=== PATIENT | female | born 1970 | race African-American/Black ===

== ENCOUNTER 2020-05-31 10:59 | Outpatient (CLI) | payer BC, SELFPAY ==
--- NOTE | ~2020-05-31 | XR_ITS ---
EXAMINATION: XR foot RT standing 2V DATE: 05/31/2020 12:06 INDICATION: Rheumatoid arthritis. TECHNIQUE: 2 views of right foot standing were obtained. COMPARISON: None. FINDINGS: There is a bunionette deformity of the fifth digit. Pes planus is noted. No fracture. There is mild osteoarthritis of first metatarsophalangeal joint and some of the interphalangeal joints and midfoot joints. No evidence of inflammatory arthropathy. IMPRESSION: 1. Mild polyarticular osteoarthritis. 2. Pes planus. 3. Bunionette. Reviewed, dictated and finalized at location A. TY RESEARCH ASSOCIATE
--- NOTE | ~2020-05-31 | XR_ITS ---
EXAMINATION: XR foot LT standing 2V DATE: 05/31/2020 12:08 INDICATION: Rheumatoid arthritis. TECHNIQUE: 2 views of left foot standing were obtained. COMPARISON: None. FINDINGS: Pes planus is noted. There is a bunionette deformity of fifth digit. No fracture. There is mild osteoarthritis of first metatarsophalangeal joint. No evidence of inflammatory arthropathy. IMPRESSION: 1. Mild osteoarthritis of first metatarsophalangeal joint. 2. Pes planus. 3. Bunionette. Reviewed, dictated and finalized at location A. NCIAL SYSTEMS ANALYST
--- NOTE | ~2020-05-31 | XR_ITS ---
EXAMINATION: HAND-CHELLE ARTHRITIS 3+VIEWS DATE: 05/31/2020 12:08 INDICATION: Rheumatoid arthritis TECHNIQUE: Posteroanterior, lateral, and oblique views of the left and of the right hands as well as a ballcatchers view of both hands were obtained. COMPARISON: None. FINDINGS: Right first metacarpophalangeal arthrodesis with internal fixation with a pair of pins and dorsal emerita ed figure 8 cerclage wire. No acute fractures. Severe joint space narrowing at the bilateral first me tacarpophalangeal joints. The joint space narrowing appears relatively uniform with associated erosio ns at the base of the left second proximal phalanx and at both metacarpal heads as well as tiny sinai nal osteophytes which would be consistent with given history of rheumatoid arthritis with likely seco ndary mild osteoarthritis. Additional mild relatively uniform joint space narrowing at the remaining metacarpophalangeal joints but without erosions consistent with mild rheumatoid arthritis. Lucency at the distal head of the right ulna most likely an additional erosion related to rheumatoid arthritis although differential includes less likely osteoarthritis related subchondral cyst. Additional polyar ticular osteoarthritis. Paraspinal nonuniform joint space narrowing is of moderate severity at the ri ght radiocarpal, wrist and triscaphe joints and mild at the left radiocarpal, wrist, triscaphe joints and mild at the right first carpometacarpal and several predominantly distal interphalangeal joints. IMPRESSION: 1. Polyarticular osteoarthritis throughout both hands likely representing a combination of rheumatoid arthritis, severe at the bilateral second metacarpophalangeal joints, and mild to moderate osteoarth ritis at multiple joints in both hands and wrists as detailed above. 2. Internally fixed right first metacarpophalangeal arthrodesis. Reviewed, dictated and finalized at location H. NG MACHINE ASSEMBLER IMPRESSION: 1. Polyarticular osteoarthritis throughout both hands likely representing a com bination of rheumatoid arthritis, severe at the bilateral second metacarpophala ngeal joints, and mild to moderate osteoarthritis at multiple joints in both blackman nds and wrists as detailed above. 2. Internally fixed right first metacarpophalangeal arthrodesis.
[2020-05-31 11:53] LABS: Hematocrit 35.2 % (37.0-47.0); Hemoglobin 10.9 g/dL (12.0-15.0); Mean Corpuscular Hemoglobin 23.8 pg (26-34); Mean Corpuscular Volume 76.9 fl (80-100); Mean Platelet Volume 10.2 fl (7.4-10.4); Platelet Count Result 233 k/mm3 (150-375); Red Blood Count 4.58 M/mm3 (4.2-5.4); Red Cell Distribution Width 14.5 % (11.5-14.5); White Blood Count 4.4 K/mm3 (4.5-10.0)
[2020-05-31 12:06] LABS: Add Urine Microscopic? YES; Appearance Urine Clear (Clear); Bacteria Urine Trace /hpf; Bilirubin Urine Negative (Negative); Blood Urine Negative (Negative); Color Urine Yellow (Yellow); Glucose Urine UA Negative (Negative); Ketones Urine Negative (Negative); Leukocyte Esterase Ur Trace LEU/UL (Negative); Mucus Urine Rare /lpf; Nitrate Urine Negative (Negative); Protein Urine 1+ mg/dL (Negative); RBC Urine 0-2 /hpf (0-2); Specific Grav Ur 1.018 (1.001-1.035); Squamous Epithelial Cell Urine Many /hpf (Few); Transitional Epi Cells Urine Rare /hpf (None Seen); Urobilinogen Urine Negative mg/dL (<2.0); WBC Urine 0-3 /hpf
[2020-05-31 12:13] LABS: Alanine Aminotransferase 35 U/L (4-35); Albumin Level 4.3 g/dL (3.5-5.1); Alkaline Phosphatase 67 U/L (38-126); Anion Gap 9 mmol/L (8-16); Aspartate Amino Transferase 37 U/L (14-36); Bilirubin,Total 0.5 mg/dL (0.2-1.3); Blood Urea Nitrogen 16 mg/dL (7-17); CRP < 0.5 mg/dL (<1.0); Calcium 9.6 mg/dL (8.4-10.2); Carbon Dioxide 27 mmol/L (22-30); Chloride 102 mmol/L (98-107); Estimated Glomerular Filt Rate > 60; Glucose 86 mg/dL (65-105); Potassium 3.6 mmol/L (3.4-5.0); Sodium 138 mmol/L (137-145)
[2020-05-31 12:48] LABS: Hepatitis B Surface Antigen Negative (Negative)
[2020-05-31 12:58] LABS: Erythrocyte Sedimentation Rate 22 mm/hr (0-20)
[2020-05-31 13:08] LABS: Hepatitis B Surface Anti Res Positive; Hepatitis C Virus Antibody Negative (Negative)
[2020-06-03 04:52] LABS: Hepatitis B Core Ab Total Nonreactive (Nonreactive)
[2020-06-03 10:54] LABS: Anti Cyclic Citrullinated Pept >250 Units (<20)
[2020-06-03 21:28] LABS: NIL 0.01 IU/mL; Quantiferon TB Plus, 1T NEGATIVE (NEGATIVE); TB2-NIL 0.01 IU/mL
== END 2020-05-31 11:00 | disposition home or self-care (01) ==
PROVIDERS: PCP Family Medicine; Visit Provider Internal Medicine
DX: M05.79 Rheumatoid arthritis with rheumatoid factor of multiple sites without organ or systems involvement (principal); M21.42 Flat foot [pes planus] (acquired), left foot; M21.622 Bunionette of left foot; M19.072 Primary osteoarthritis, left ankle and foot; M19.071 Primary osteoarthritis, right ankle and foot; M21.41 Flat foot [pes planus] (acquired), right foot; M21.621 Bunionette of right foot
CPT/HCPCS: 36415; 73130; 73620; 80053; 81001; 82306; 85027; 85652; 86038; 86039; 86140; 86200; 86480; 86704; 86706; 86803; 87340

== ENCOUNTER 2020-10-15 15:37 | Outpatient (CLI) | payer BC, SELFPAY ==
[2020-10-15 16:16] LABS: Basophils Percent Auto 0.3 % (0.2-1.2); Eosinophils Absolute Auto 0.1 K/mm3 (0-0.3); Eosinophils Percent Auto 1.3 % (0-4.4); Hemoglobin 11.3 g/dL (12.0-15.0); Immature Granulocyte Absolute 0.01 K/mm3 (0.00-0.031); Immature Granulocyte Percent A 0.3 % (0-0.5); Lymphocytes Absolute Auto 1.35 K/mm3 (0.9-3.2); Lymphocytes Percent Auto 34.4 % (18.3-44.2); Mean Corpuscular HGB Conc 30.5 g/dl (32-36); Mean Corpuscular Hemoglobin 23.3 pg (26-34); Mean Corpuscular Volume 76.3 fl (80-100); Mean Platelet Volume 10.1 fl (7.4-10.4); Monocytes Absolute Auto 0.4 K/mm3 (0.1-0.6); Monocytes Percent Auto 11.2 % (2.6-8.5); Neutrophils Absolute Auto 2.1 K/mm3 (1.3-6.7); Neutrophils Percent Auto 52.5 % (45.5-73.1); Platelet Count Result 290 k/mm3 (150-375); Red Blood Count 4.85 M/mm3 (4.2-5.4); Red Cell Distribution Width 14.1 % (11.5-14.5); White Blood Count 3.9 K/mm3 (4.5-10.0)
[2020-10-15 16:19] LABS: Add Urine Microscopic? YES; Appearance Urine Cloudy (Clear); Bilirubin Urine Negative (Negative); Blood Urine Negative (Negative); Color Urine Yellow (Yellow); Glucose Urine UA Negative (Negative); Ketones Urine Negative (Negative); Leukocyte Esterase Ur Negative LEU/UL (Negative); Nitrate Urine Negative (Negative); Protein Urine Negative (Negative); RBC Urine 0-2 /hpf (0-2); Squamous Epithelial Cell Urine Moderate /hpf (Few); Urobilinogen Urine Negative mg/dL (<2.0); WBC Urine 0-3 /hpf
[2020-10-15 16:36] LABS: Potassium 3.8 mmol/L (3.4-5.0)
[2020-10-15 16:44] LABS: Alanine Aminotransferase 42 U/L (4-35); Albumin Level 4.5 g/dL (3.5-5.1); Alkaline Phosphatase 76 U/L (38-126); Anion Gap 6 mmol/L (8-16); Aspartate Amino Transferase 36 U/L (14-36); Bilirubin,Total 0.2 mg/dL (0.2-1.3); Blood Urea Nitrogen 13 mg/dL (7-17); CRP 1.3 mg/dL (<1.0); Calcium 9.6 mg/dL (8.4-10.2); Carbon Dioxide 29 mmol/L (22-30); Chloride 102 mmol/L (98-107); Complement C3 124 mg/dL (88-165); Estimated Glomerular Filt Rate > 60; Glucose 93 mg/dL (65-105); Sodium 137 mmol/L (137-145)
[2020-10-15 17:40] LABS: Erythrocyte Sedimentation Rate 26 mm/hr (0-20)
[2020-10-19 19:56] LABS: Hexagonal Phase Confirm Negative (Negative); Lupus dRVVT 1:1 Mix Interpreta Not Indicated; Lupus dRVVT Confirmation Negative (Negative); Lupus dRVVT Screen 51 sec (<=45); PTT-LA Screen 42 sec (<=40)
[2020-10-20 03:19] LABS: Anti Cardio Antibody IgM <12 MPL (<=12); Anti Cardiolipin Antibody IgA <11 APL (<=11); Anti Cardiolipin Antibody IgG <14 GPL (<=14)
[2020-10-22 12:08] LABS: SM Antibody <1.0; SM/RNP Antibody >8.0
[2020-10-23 14:06] LABS: SS-A >8.0; SS-B <1.0
== END 2020-10-15 15:38 | disposition home or self-care (01) ==
LOC: ANHLAB 15:40
PROVIDERS: PCP Family Medicine; Visit Provider Internal Medicine
DX: M05.79 Rheumatoid arthritis with rheumatoid factor of multiple sites without organ or systems involvement (principal); M19.90 Unspecified osteoarthritis, unspecified site
CPT/HCPCS: 36415; 80053; 81001; 85025; 85597; 85598; 85613; 85652; 85730; 86140; 86146; 86147; 86160; 86225; 86235